=== PATIENT | male | born 1985 ===

== ENCOUNTER 2017-08-22 14:53 | Emergency (ER) | payer OTHER ==
[2017-08-22 15:31] VITALS: BMI 24.7
[2017-08-22 15:33] VITALS: BP 104/68; PULSE 78; RESP 20; TEMP 98.7; O2SAT 98
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
--- NOTE | 2017-08-22 20:35 | RAD ---
PROCEDURE: Bilateral Wrists Radiographs. HISTORY: r/o fx COMPARISON: None available. FINDINGS: BONES: Right Carpal Bones: No acute displaced fracture identified. Left Carpal Bones: No acute displaced fracture identified. Right Distal Radius and Ulna: No acute displaced fracture identified. Left Distal Radius and Ulna: No acute displaced fracture identified. JOINT SPACES: Right Wrist: No dislocation. Left Wrist: No dislocation. SOFT TISSUES: Right Wrist: Unremarkable. No evidence of radiopaque foreign body. Left Wrist: Unremarkable. No evidence of radiopaque foreign body. OTHER FINDINGS: None. IMPRESSION: No acute displaced fracture identified. If high clinical index of suspicion, cross-sectional imaging may be considered. Otherwise if symptoms persist or if there is continued clinical concern, x-ray follow-up in 7-10 days should be considered.
== END 2017-08-22 17:54 | disposition home or self-care (01) ==
LOC: C.ER 14:53
DX: S63.509A Unspecified sprain of unspecified wrist, initial encounter (principal); V13.4XXA Pedal cycle driver injured in collision with car, pick-up truck or van in traffic accident, initial encounter; Y93.55 Activity, bike riding